=== PATIENT | female | born 1955 | race Caucasian/White ===

== ENCOUNTER 2017-08-05 06:45 | Day surgery (SDC) | payer BC ==
[~2017-08-05 06:45] MED LIST: Dextrose 5%-0.45% NaCl 1,000 ML IV SCH; Midazolam 1 MG/ML 2 ML SDV ONE; Sodium Chloride 0.9% 10 ML Syringe FLUSH PRN; fentaNYL 100 MCG/2 ML SDV ONE
[2017-08-05] MEDS ORDERED: fentaNYL 100 MCG/2 ML SDV IV ONE ×2 (06:46→08:36)
[2017-08-05] MEDS ORDERED: Midazolam 1 MG/ML 2 ML SDV IV ONE ×7 (06:46→08:47)
[2017-08-05] MEDS ORDERED: Midazolam 1 MG/ML 2 ML SDV ONE (08:54)
--- NOTE | 2017-08-05 12:56 | OR ---
DATE: 08/05/2017 PROCEDURE: Total colonoscopy. INSTRUMENT USED: PCF-H180AL Olympus video colonoscope. PREMEDICATIONS: Fentanyl 100 mcg intravenous, Versed 4 mg intravenous. Nasal O2 cannula. The procedure was done under pulse oximetry, BP recording, and school lunch monitor. INDICATION: The patient with metastatic liver disease. Colonoscopic examination is done for detection of any polypoid lesions and removal, endoscopic hemostasis therapy if indicated. DESCRIPTION OF PROCEDURE: Initial rectal exam was unremarkable. Rigid anoscopy was normal. The colonoscope was passed with ease up to the ileocecal area, photographs were taken the normal-appearing cecum, identified by landmarks of appendiceal orifice and double-bulged ileocecal folds. No bleeding was noted from any of the visualized areas at the commencement of the examination. No stricture. No vascular ectasia. No large isolated ulcerations seen. No evidence of diffuse inflammatory bowel disease in the form of friability, contact bleeding, or ulcerations. No polyp or tumor mass identified. Probing the proximal sides of folds and flexures, using adequate distention and clearing up the stool material, withdrawal of the scope was made, cecum to rectum time over 6 minutes. No bleeding was noted from any of the visualized areas at the completion of examination. IMPRESSION: Normal study. The patient tolerated the procedure well. [facility] /[id number]
== END 2017-08-05 10:25 | disposition home or self-care (01) ==
LOC: DL.ENDO 06:45
PROVIDERS: ATTEND Internal Medicine Gastroenterology
DX: C78.7 Secondary malignant neoplasm of liver and intrahepatic bile duct (principal); I10 Essential (primary) hypertension; E66.9 Obesity, unspecified; E03.9 Hypothyroidism, unspecified
CPT/HCPCS: J2250; J3010; J7042

== ENCOUNTER 2020-05-31 16:34 | Emergency (ER) | payer BC ==
[2020-05-31] MEDS ORDERED: Sodium Chloride 0.9% 1,000 ML IV ONE (16:35)
[2020-05-31] MEDS ORDERED: Ondansetron 4 MG/2 ML SDV IVPUSH ONE (16:35)
[2020-05-31] MEDS ORDERED: Diazepam 5 MG Tab PO ONE (16:35)
[2020-05-31] MEDS ORDERED: Dexamethasone 4 MG/ML SDV IVPUSH ONE (16:52)
[2020-05-31] MEDS ORDERED: Flumazenil 0.1 MG/ML 5 ML MDV IVPUSH PRN (16:52)
[2020-05-31] MEDS ORDERED: Meclizine 12.5 MG Tab PO ONE (16:53)
--- NOTE | 2020-05-31 17:11 | EDM.PDOC ---
<James Estrada - Last Filed: 05/31/20 18:41> ED HPI GENERAL MEDICAL PROBLEM - General Chief Complaint: General Stated Complaint: PAIN, NAUSEA, VOMITING Time Seen by Provider: 05/31/20 16:35 - Related Data Allergies Allergy/AdvReac Type Severity Reaction Status Date / Time No Known Allergies Allergy Verified 05/31/20 16:38 Home Meds: Home Meds Benazepril/Hydrochlorothiazide [Benazepril-Hctz 20-12.5 mg Tab] 1 tab PO DAILY 08/03/17 [History] Fluocinonide [Lidex 0.05% Top Soln] 1 applic TOP ASDIRECTED 08/03/17 [History] Levothyroxine Sodium [Synthroid] 150 mcg PO DAILY 08/03/17 [History] PARoxetine [Paxil] 40 mg PO DAILY 08/03/17 [History] Pramipexole [Mirapex] 0.5 mg PO BEDTIME 08/03/17 [History] Triamcinolone Acetonide [Triamcinolone Acetonide 0.1% Crm] 1 applic TOP ASDIRECTED 08/03/17 [History] Course - Re-Assessments/Exams Free Text/Narrative Re-Assessment/Exam: 05/31/20 17:48 I personally performed or re-performed the physical examination and medical decision making. I have verified all student documentation or findings, including history, physical exam and/or medical decision making. Departure - Departure Disposition: Home, Self-Care 01 Clinical Impression: Acute vertigo with vomiting and inability to stand Breast cancer metastasized to brain Qualifiers: Laterality: right Qualified Code(s): C50.911 - Malignant neoplasm of unspecified site of right female breast - Discharge Information Instructions: Vertigo Forms: ED Department Discharge Additional Instructions: Take home medications given: Valium 5 mg. take one tablet by mouth every 6 hours as needed for vertigo. (sent two tablets) Follow-up with your oncologist tomorrow or Tuesday to inform of condition for additional evaluation. Return to ER if symptoms worsen. Care Plan Goals: Take home medications given: Valium 5 mg. take one tablet by mouth every 6 hours as needed for vertigo. (sent two tablets) Follow-up with your oncologist tomorrow or Tuesday to inform of condition for additional evaluation. Return to ER if symptoms worsen. <Reina Rhodes - Last Filed: 06/01/20 07:16> ED HPI GENERAL MEDICAL PROBLEM - General Source of Information: Reports: Patient, Family, RN, RN Notes Reviewed - History of Present Illness INITIAL COMMENTS - FREE TEXT/NARRATIVE: pt arrives to ED accompanied by with report of dizziness/lightheadedness, right shoulder/scapular pain, and nausea. states she has metastatic cancer of the breast, liver, and brain. states she fell a week ago and has been dizzy since. was evaluated by her oncologist yesterday 05/30, an MRI of the brain was completed. pt states she was not discharged on any new medications. dizziness has worsened today with onset of nausea and vomiting. pain began today, rates 03/06. has right subclavian port, not accessed. did not have her treatment yesterday as scheduled d/t her symptoms. medication list obtained from [employer] [facility]. 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 Onset: Unknown/Unsure Right Shoulder Pain Score (Numeric/FACES): 8 Past Medical History HEENT History: Reports: Impaired Vision Other HEENT History: WEARS CORRECTIVE LENS Cardiovascular History: Reports: High Cholesterol, Hypertension Respiratory History: Reports: Sleep Apnea Gastrointestinal History: Reports: None Genitourinary History: Reports: None C [employer]OPER History: Reports: Musculoskeletal History: Reports: None Neurological History: Reports: Other (See Below) Other Neuro History: RESTLESS LEG SYNDROME Psychiatric History: Reports: Anxiety, Depression, Other (See Below) Other Psychiatric History: HX OF ALCOHOL HABITUATION Endocrine/Metabolic History: Reports: Hypothyroidism, Obesity/BMI 30+ Hematologic History: Reports: None Immunologic History: Reports: None Oncologic (Cancer) History: Reports: Brain, Breast, Liver Dermatologic History: Reports: Psoriasis, Urticaria - Infectious Disease History Infectious Disease History: Reports: Chicken Pox - Past Surgical History Head Surgeries/Procedures: Reports: None HEENT Surgical History: Reports: None Cardiovascular Surgical History: Reports: None Respiratory Surgical History: Reports: None GI Surgical History: Reports: None Endocrine Surgical History: Reports: None Neurological Surgical History: Reports: None Musculoskeletal Surgical History: Reports: None Oncologic Surgical History: Reports: Biopsy of Breast, Lumpectomy Dermatological Surgical History: Reports: None Social & Family History - Family History HEENT: Reports: None - Tobacco Use Tobacco Use Status *Q: Never Tobacco User Second Hand Smoke Exposure: No - Caffeine Use Caffeine Use: Reports: Coffee Other Caffeine Use: AVERAGE OF 3 CUPS DAILY - Recreational Drug Use Recreational Drug Use: No ED ROS GENERAL - Review of Systems Review Of Systems: Comprehensive ROS is negative, except as noted in HPI. ED EXAM, GENERAL - Physical Exam Exam: See Below Exam Limited By: No Limitations General Appearance: Alert, Moderate Distress Eye Exam: Right Eye: Nystagmus Ears: Normal External Exam, Hearing Grossly Normal Nose: Normal Inspection, Normal Mucosa, No Blood Course - Vital Signs Text/Narrative:: plan of care discussed with patient and , both comfortable and agreeable with pt going home this evening. Last Recorded V/S: Last Vital Signs Temp 99.2 F 05/31/20 16:40 Pulse 96 05/31/20 16:40 Resp 22 H 05/31/20 16:40 BP 142/61 H 05/31/20 16:40 Pulse Ox 96 05/31/20 16:40 - Orders/Labs/Meds Labs: Laboratory Tests 05/31/20 05/31/20 Range/Units 16:42 16:42 WBC 6.6 (5.0-10.0) 10^3/uL RBC 3.48 L (4.2-5.4) 10^6/uL Hgb 9.3 L (12.0-16.0) g/dL Hct 28.6 L (37.0-47.0) % MCV 82.2 (80-100) fL MCH 26.7 L (27.0-34.0) pg MCHC 32.5 L (33.0-35.0) g/dL Plt Count 117 L (150-450) 10^3/uL Neut % (Auto) 74.7 (42.2-75.2) % Lymph % (Auto) 17.6 L (20.5-50.1) % Anson % (Auto) 7.0 (2-8) % Eos % (Auto) 0.2 L (1.0-3.0) % Baso % (Auto) 0.5 (0.0-1.0) % Sodium 134 L (136-145) mmol/L Potassium 3.0 L (3.5-5.1) mmol/L Chloride 100 (98-107) mmol/L Carbon Dioxide 21 (21-32) mmol/L Anion Gap 16.0 H (7-13) mEq/L BUN 12 (7-18) mg/dL Creatinine 0.86 (0.55-1.02) mg/dL Est Cr Clr Drug Dosing 61.03 mL/min Estimated GFR (MDRD) > 60 BUN/Creatinine Ratio 14.0 (No establ ref range) Glucose 121 H (74-99) mg/dL Calcium 9.0 (8.5-10.1) mg/dL Magnesium 2.1 (1.8-2.4) mg/dL Total Bilirubin 1.1 H (0.2-1.0) mg/dL AST 64 H (15-37) U/L ALT 35 (14-59) U/L Alkaline Phosphatase 230 H (46-116) U/L Total Protein 7.9 (6.4-8.2) g/dL Albumin 3.5 (3.4-5.0) g/dL Globulin 4.4 Albumin/Globulin Ratio 0.8 Meds: Medications Discontinued Medications Generic Name Dose Route Start Last Admin Trade Name Freq PRN Reason Stop Dose Admin Dexamethasone 10 mg 05/31/20 16:52 05/31/20 17:01 Decadron IVPUSH 05/31/20 16:53 10 mg ONETIME ONE Administration Diazepam 5 mg 05/31/20 16:52 05/31/20 18:01 Valium IVPUSH 05/31/20 16:53 5 mg ONETIME ONE Administration Diazepam Confirm 05/31/20 18:47 Valium. Administered 05/31/20 18:48 Dose 10 mg .ROUTE .STK-MED ONE Flumazenil 0.2 mg 05/31/20 16:52 Romazicon IVPUSH ASDIRECTED PRN Respiratory Depression Sodium Chloride 1,000 mls @ 999 mls/hr 05/31/20 16:35 05/31/20 16:50 Normal Saline IV 05/31/20 17:35 999 mls/hr .BOLUS ONE Administration Meclizine HCl 25 mg 05/31/20 16:53 05/31/20 17:01 Antivert PO 05/31/20 16:54 25 mg ONETIME ONE Administration Ondansetron HCl 4 mg 05/31/20 16:35 05/31/20 16:50 Zofran IVPUSH 05/31/20 16:36 4 mg ONETIME ONE Administration - Radiology Interpretation Free Text/Narrative:: PROCEDURE INFORMATION: Exam: XR Right Shoulder Exam date and time: 05/31/2020 5:42 PM Age: 64 years old Clinical indication: Other: Fell last week--hx mets; Additional info: Pain TECHNIQUE: Imaging protocol: XR Right shoulder. Views: 2 or more views. COMPARISON: No relevant prior studies available. FINDINGS: Tubes, catheters and devices: Right Port is incidentally identified with the tip in the distal superior vena cava. Bones/joints: There is no acute fracture or dislocation. There is narrowing of the acromioclavicular joint. There is inferior AC joint marginal osteophytosis. The glenohumeral and elbow joints are preserved. Soft tissues: Normal. IMPRESSION: 1. No acute findings. 2. Moderate acromioclavicular arthropathy. Thank you for allowing us to participate in the care of your patient. Dictated and Authenticated by: Christal Godinez MD Departure - Departure Time of Disposition: 18:27 Condition: Fair - Discharge Information *PRESCRIPTION DRUG MONITORING PROGRAM REVIEWED*: No *COPY OF PRESCRIPTION DRUG MONITORING REPORT IN PATIENT ALESSIA: No Sepsis Event Note (ED) - Evaluation Sepsis Screening Result: No Definite Risk
[2020-05-31 17:22] LABS: CHLORIDE,CL 100 mmol/L (98-107); SODIUM,NA 134 mmol/L (136-145)
--- NOTE | 2020-05-31 17:55 | CR ---
PROCEDURE INFORMATION: Exam: XR Right Shoulder Exam date and time: 05/31/2020 5:42 PM Age: 64 years old Clinical indication: Other: Fell last week--hx mets; Additional info: Pain TECHNIQUE: Imaging protocol: XR Right shoulder. Views: 2 or more views. COMPARISON: No relevant prior studies available. FINDINGS: Tubes, catheters and devices: Right Port is incidentally identified with the tip in the distal superior vena cava. Bones/joints: There is no acute fracture or dislocation. There is narrowing of the acromioclavicular joint. There is inferior AC joint marginal osteophytosis. The glenohumeral and elbow joints are preserved. Soft tissues: Normal. IMPRESSION: 1. No acute findings. 2. Moderate acromioclavicular arthropathy.
[2020-05-31] MEDS ORDERED: Diazepam 5 MG Tab ONE (18:47)
== END 2020-05-31 18:59 | disposition home or self-care (01) ==
LOC: DL.ED 16:34
DX: R42 Dizziness and giddiness (principal); R11.2 Nausea with vomiting, unspecified; C50.911 Malignant neoplasm of unspecified site of right female breast; C79.31 Secondary malignant neoplasm of brain; I10 Essential (primary) hypertension; E03.9 Hypothyroidism, unspecified; E66.9 Obesity, unspecified; Z68.27 Body mass index [BMI] 27.0-27.9, adult; Z79.899 Other long term (current) drug therapy
CPT/HCPCS: 36415; 73030; 80053; 83735; 85025; 96374; 96375; 99284; A9270; J1100; J2405; J3360; J7030